=== PATIENT | female | born 1985 | race Two or more races ===

== ENCOUNTER 2022-11-04 18:27 | Emergency (ER) | payer MEDICAID ==
[~2022-11-04] VITALS: Ht 165.1 cm; Wt 72.0 kg
[2022-11-04 18:50] VITALS: BP 145/78
[2022-11-04] MEDS ORDERED: T3 PO (20:29)
[2022-11-04] MEDS ORDERED: PENI500T MT (20:29)
[2022-11-04] MEDS ORDERED: KETOROLAC 60MG/2ML VIAL IM ONE (20:30)
== END 2022-11-04 21:10 | disposition home or self-care (01) ==
LOC: ER 19:10
DX: K08.89 Other specified disorders of teeth and supporting structures (principal)
CPT/HCPCS: 81025; 96372; 99283; J1885